=== PATIENT | female | born 1950 | race Caucasian/White ===

== ENCOUNTER 2022-11-12 15:22 | Emergency (ER) | payer MEDICARE, SELFPAY ==
--- NOTE | ~2022-11-12 | CT_ITS ---
EXAMINATION: CT CERVICAL SPINE WITHOUT CONTRAST; UNENHANCED CT OF THE HEAD. CLINICAL INFORMATION: Head and neck pain status post fall. COMPARISON: None TECHNIQUE: Routine unenhanced CT of the head with multiple coronal and sagittal reformatted images; routine unenhanced CT of the cervical spine with multiple coronal and sagittal reformatted images. This CT examination was performed using dose optimization techniques as appropriate, variously including the following: *Automated exposure control *Adjustment of mA and/or kV according to patient size (this includes techniques or standardized protocols for targeted exams where dose is matched to indication/reason for exam; i.e. extremities or head) *Use of iterative reconstruction technique DLP: 854 mGy-cm FINDINGS: The ventricles and sulci are normal in size and configuration. No intracranial hemorrhage, tumors or acute infarcts noted. The orbits and globes are normal in appearance. No mastoid or middle ear cavity effusions identified. Near-complete opacification of the visualized left maxillary sinus. A possible gas-fluid level is noted in the left maxillary sinus. The left orbital wall appears intact. No left orbital emphysema noted. The entirety of the left maxillary sinus is not included within the image [id number]. Within the left maxillofacial region included in the image [id number] and no soft tissue inflammatory changes are identified. CT cervical spine: No fractures or acute appearing subluxations identified. Diffuse multilevel intervertebral disc space narrowing and endplate osteophytosis is noted along with multilevel moderate-marked facet hypertrophic changes. No prevertebral fluid collections or soft tissue inflammatory changes identified. Incidental note is made of bilateral subcentimeter rounded low density foci within the thyroid which are overwhelmingly likely to represent benign entities and on the basis of this examination do not warrant additional imaging follow-up. CT/CT head/brain wo IV con IMPRESSION: CT head: *No acute intracranial abnormalities. *The left maxillary sinus is partially included in the image [id number] and demonstrates a gas-fluid level. Findings may indicate sinusitis. Close scrutiny of the visualized maxillofacial region demonstrates no acute soft tissue inflammatory changes or fractures. Fluid within the left maxillary sinus could also be present secondary to acute maxillofacial injury not included within the image [id number]. As clinically indicated consider further evaluation with dedicated maxillofacial CT. CT cervical spine: *No acute abnormalities. *Extensive multilevel chronic spondylosis.
--- NOTE | ~2022-11-12 | CT_ITS ---
EXAMINATION: CT CERVICAL SPINE WITHOUT CONTRAST; UNENHANCED CT OF THE HEAD. CLINICAL INFORMATION: Head and neck pain status post fall. COMPARISON: None TECHNIQUE: Routine unenhanced CT of the head with multiple coronal and sagittal reformatted images; routine unenhanced CT of the cervical spine with multiple coronal and sagittal reformatted images. This CT examination was performed using dose optimization techniques as appropriate, variously including the following: *Automated exposure control *Adjustment of mA and/or kV according to patient size (this includes techniques or standardized protocols for targeted exams where dose is matched to indication/reason for exam; i.e. extremities or head) *Use of iterative reconstruction technique DLP: 854 mGy-cm FINDINGS: The ventricles and sulci are normal in size and configuration. No intracranial hemorrhage, tumors or acute infarcts noted. The orbits and globes are normal in appearance. No mastoid or middle ear cavity effusions identified. Near-complete opacification of the visualized left maxillary sinus. A possible gas-fluid level is noted in the left maxillary sinus. The left orbital wall appears intact. No left orbital emphysema noted. The entirety of the left maxillary sinus is not included within the image [id number]. Within the left maxillofacial region included in the image [id number] and no soft tissue inflammatory changes are identified. CT cervical spine: No fractures or acute appearing subluxations identified. Diffuse multilevel intervertebral disc space narrowing and endplate osteophytosis is noted along with multilevel moderate-marked facet hypertrophic changes. No prevertebral fluid collections or soft tissue inflammatory changes identified. Incidental note is made of bilateral subcentimeter rounded low density foci within the thyroid which are overwhelmingly likely to represent benign entities and on the basis of this examination do not warrant additional imaging follow-up. CT/CT cervical spine wo IV con IMPRESSION: CT head: *No acute intracranial abnormalities. *The left maxillary sinus is partially included in the image [id number] and demonstrates a gas-fluid level. Findings may indicate sinusitis. Close scrutiny of the visualized maxillofacial region demonstrates no acute soft tissue inflammatory changes or fractures. Fluid within the left maxillary sinus could also be present secondary to acute maxillofacial injury not included within the image [id number]. As clinically indicated consider further evaluation with dedicated maxillofacial CT. CT cervical spine: *No acute abnormalities. *Extensive multilevel chronic spondylosis.
[2022-11-12 15:29] VITALS: BP 124/78; BP 145/96; PULSE 74; PULSE 84; RESP 18; TEMP 37.2; O2SAT 98; O2SAT 99; BMI 21.2
--- NOTE | 2022-11-12 15:31 | ED_ITS ---
HPI - Fall General Chief Complaint: Fall Stated Complaint: fall Time Seen by Provider: 11/12/22 15:25 Source: patient and EMS Mode of arrival: EMS History of Present Illness HPI Narrative: 72-year-old female with past medical history pancreatic CA s/p Whipple procedure, presenting to the ED complaining of scalp laceration s/p mechanical trip and fall off [employer] with + head strike. Reports was stepping down and fell backwards striking head on bureau. Denies taking anticoagulation. Denies LOC or symptoms prior to fall. reports associated headache and neck pain. Denies vision change/loss, nausea / vomiting, numbness, tingling, weakness. Tetanus UTP MD complaint: fall Related Data Previous Rx's Medication Instructions Recorded fluticasone propionate 50 2 spray intranasal DAILY #16 grams 11/12/22 mcg/actuation nasal spray,suspension (Flonase Allergy Relief) Allergies Allergy/AdvReac Type Severity Reaction Status Date / Time codeine Allergy Unknown Verified 11/12/22 15:34 egg Allergy Unknown Verified 11/12/22 15:34 NSAIDS (Non-Steroidal Allergy Unknown Verified 11/12/22 15:34 Anti-Inflamma Sulfa (Sulfonamide Allergy Unknown Verified 11/12/22 15:34 Antibiotics) Review of Systems Review of Systems: Constitutional: No Fever, No Chills, No Night Sweats, No Fatigue, No Malaise ENT/Mouth: No Ear Pain, No Nasal Congestion, No sore throat, No Rhinorrhea, No Swallowing Difficulty Eyes: No Eye Pain, No Swelling, No Redness, No Vision Changes Cardiovascular: No Chest Pain, No SOB, No Edema, No Palpitations Respiratory: No Cough, No Sputum, No Dyspnea Gastrointestinal: No Nausea, No Vomiting, No Diarrhea, No Constipation, No Abdominal pain Genitourinary: No Dysuria, No Urinary Frequency, No Hematuria, No Urinary Incontinence/retention Musculoskeletal: + joint pain, No Myalgias, No Joint Swelling Skin: + Skin Lesions, No rash Neuro: No Weakness, No Numbness, No Paresthesias, No Loss of Consciousness, No Dizziness, + Headache Yes all other systems are reviewed and are negative Constitutional: Constitutional: Reports as per HPI Neurologic: Denies Abnormal speech present [facility] Past Medical History Attestation statement: The following information was validated with the patient. Social History Social History Advance Directives: No Advance Directives Information Provided: Yes Physical Exam Vital Signs: Vital Signs: Last Vital Signs Temp 98.9 F 11/12/22 15:29 Pulse 74 11/12/22 15:29 Resp 18 11/12/22 15:29 BP 145/96 H 11/12/22 15:29 Pulse Ox 99 11/12/22 15:29 O2 Del Method 11/12/22 15:29 BMI result Body Mass Index 21.2 Const: General: cooperative, healthy appearing, comfortable and no acute distress Orientation/consciousness: patient oriented x3 Limitations: no limitations HEENT: Other: + 2 cm laceration noted to right occipital scalp. bleeding controlled Head: Yes normal to inspection and Yes atraumatic Ears: hearing grossly normal bilaterally General nose exam: Normal external nose present Face and sinus: Yes normal facial exam Throat: Yes posterior oropharynx normal, Yes tonsils normal and Yes uvula midline Eyes: General: appearance normal, both eyes and all related structures Pupils: Equal, round and reactive pupils present EOM: EOMs intact bilaterally Neck: Other: no midline cervical spinous tenderness Neck: Yes normal visual inspection and Yes no meningeal signs Resp: Effort & Inspection: normal respiratory effort and no respiratory distress Auscultation: clear to auscultation bilaterally Cardio: Rate: regular rate Heart sounds: S1 normal heart sound present and S2 normal heart sound present GI: Inspection: Yes normal to inspection Palpation (GI): Soft to palpation, nontender, no guarding and not rigid Back/Spine/Pelvis: Other: No midline thoracic/lumbar spinous tenderness/step-off or deformity Skin: Rashes: no rashes Neuro: General: patient oriented x3, gait normal, tone normal, moves all extremities, no meningeal signs, no focal motor deficits and CN's II-XI intact bilaterally Cranial nerves: Yes CN's II-XII intact bilaterally and Yes Equal, round and reactive pupils present Cognition (Neuro): normal cognition Speech: No Abnormal speech present Gait exam (Neuro): Normal gait present Motor exam (neuro): 5/5 motor strength present throughout Extrem: General: Yes normal to inspection Course Course Course Narrative: CT head/brain wo IV con/CT cervical spine wo IV con IMPRESSION: CT head: *No acute intracranial abnormalities. *The left maxillary sinus is partially included in the image [id number] and demonstrates a gas-fluid level. Findings may indicate sinusitis. Close scrutiny of the visualized maxillofacial region demonstrates no acute soft tissue inflammatory changes or fractures. Fluid within the left maxillary sinus could also be present secondary to acute maxillofacial injury not included within the image [id number]. As clinically indicated consider further evaluation with dedicated maxillofacial CT. ? CT cervical spine: *No acute abnormalities. *Extensive multilevel chronic spondylosis. ? > patient had no facial trauma, no further CT is indicated at this time. Patient reports she knows about left sided sinusitis which has been present times multiple years. Not interested in antibiotics at this time however will send Flonase Results discussed with patient including worrisome signs and symptoms and strict return precautions, and when to return to the emergency department. They verbalized understanding and feel safe for discharge at this time. Procedures Laceration Laceration 1: Site: scalp Side (If applicable): right Size (cm): 2 Description: linear Depth: simple, single layer Amount of anesthesia used (mL): 4 (prakash) Medical Decision Making Medical Decision Making MDM Narrative: 72-year-old female with past medical history pancreatic CA s/p Whipple procedure, presenting to the ED complaining of scalp laceration s/p mechanical trip and fall off [employer] with + head strike. on exam vital signs stable, NAD, nontoxic appearing, 2 cm laceration noted to left occipital scalp, no midline spinous tenderness throughout, no focal neuro deficits. Concern for ICH burst fractures. Low suspicion for ACS/PE plan: Head/ C-spine CT, repair wound Differential Diagnosis Differential Diagnoses: The differential diagnosis associated with the presentation includes as above Independent Interpretation I performed an independent interpretation of an: CT Scan Radiology Impression Discussion of test interpretation with radiology: I have reviewed the radiologist's reading. Prescription Management I considered prescription management with: Pain Medication Chronic Conditions Patient?s care impacted by: Cancer Discharge Plan Discharge Clinical Impression: Laceration of scalp Patient Disposition: Home, Self-Care Instructions: Laceration (ED) Additional Instructions: your CAT scans show left maxillary sinusitis. No appreciable fractures. Flonase is a nasal decongestion please use as needed/prescribed Your wound is repaired with prakash today Your wounds were repaired today in the emergency department. Keep dry and clean. You need to return to any emergency department, urgent care, or your PCPs office in 7-10 days for staple removal Apply bacitracin and or Neosporin daily If area begins look infected, is red, there is drainage, streaking, or you have fever please return to the emergency department Prescriptions: New fluticasone propionate [Flonase Allergy Relief] 50 mcg/actuation spray,suspension 2 spray intranasal DAILY Qty: 16 0RF Rx Instructions: administer into each nostril Referrals: Nury Lamar MD [Primary Care Provider] - 1 week Interventions: ED Discharge Assessment Last Done: 11/12/22 17:29 Discharge Date/Time: 11/12/22 17:29
== END 2022-11-12 17:29 | disposition home or self-care (01) ==
PROVIDERS: Emergency Provider Emergency Medicine Emergency Medical Services; PCP Internal Medicine
DX: S01.01XA Laceration without foreign body of scalp, initial encounter (principal); R51.9 Headache, unspecified; M54.2 Cervicalgia; W01.0XXA Fall on same level from slipping, tripping and stumbling without subsequent striking against object, initial encounter; Y93.9 Activity, unspecified; Y92.9 Unspecified place or not applicable; Y99.9 Unspecified external cause status
CPT/HCPCS: 12031; 70450; 72125; 99282; 99283

== ENCOUNTER 2022-11-20 09:38 | Emergency (ER) | payer MEDICARE, SELFPAY ==
[2022-11-20 10:00] VITALS: PULSE 69; RESP 16; TEMP 36.7; O2SAT 99; BMI 21.4
--- NOTE | 2022-11-20 10:03 | ED.GENADULT ---
HPI - General Adult General Chief complaint: General Medical Stated complaint: staple removal Time Seen by Provider: 11/20/22 10:03 Source: patient Mode of arrival: ambulatory Limitations: no limitations History of Present Illness HPI narrative: Patient is a 72 year old assigned female at with medical history of pancreatic cancer s/p whipple presenting to the emergency department today for staple removal. Patient states that 8 days ago she was seen and had 4 prakash placed in her scalp. Patient states that she has had no issues her prakash and she is here for removal. Patient denies any dizziness, lightheadedness, abdominal pain, nausea, vomiting, fever, chills, blurry vision, double vision, loss of vision, chest pain, difficulty breathing, shortness of breath, back pain, night sweats, pain with urination, increased urinary frequency, increased urinary urgency, blood in her urine or stool, syncope or a near syncopal episode, bowel incontinence, bladder incontinence, bowel retention, bladder retention, or any other complaints at this time. Location: head Severity: mild Severity scale (1-10): 1 Relieving factors: none Exacerbating factors: none Associated symptoms: denies other symptoms Treatments prior to arrival: none Related Data Previous Rx's Medication Instructions Recorded fluticasone propionate 50 2 spray intranasal DAILY #16 grams 11/12/22 mcg/actuation nasal spray,suspension (Flonase Allergy Relief) Allergies Allergy/AdvReac Type Severity Reaction Status Date / Time codeine Allergy Unknown Verified 11/12/22 15:34 egg Allergy Unknown Verified 11/12/22 15:34 NSAIDS (Non-Steroidal Allergy Unknown Verified 11/12/22 15:34 Anti-Inflamma Sulfa (Sulfonamide Allergy Unknown Verified 11/12/22 15:34 Antibiotics) Review of Systems Constitutional: Constitutional: Reports no additional constitutional complaints, Denies chills, Denies fever(s) and Denies night sweats Eyes: Eyes: Reports no additional eye complaints, Denies blurry vision, Denies change in vision, Denies diplopia, Denies eye discharge, Denies loss of vision and Denies eye pain ENT: Denies dizziness Cardiovascular: Cardiovascular: Reports no additional cardiovascular complaints, Denies chest pain, Denies lightheadedness, Denies Loss of Consciousness and Denies dyspnea Respiratory: Respiratory: Reports no additional respiratory complaints and Denies dyspnea Gastrointestinal: Gastrointestinal: Reports no additional gastrointestinal complaints, Denies abdominal pain, Denies melena, Denies hematochezia, Denies change in bowel habits and Denies change in stool character Genitourinary: Genitourinary: Denies hematuria, Denies urinary frequency, Denies dysuria, Denies urinary incontinence, Denies urinary hesitancy and Denies urinary urgency Musculoskeletal: Musculoskeletal: Reports no additional musculoskeletal complaints, Denies numbness and Denies tingling Neurologic: Denies dizziness, Denies loss of vision, Denies numbness and Denies tingling Psychiatric: Psychiatric: Reports no additional psychiatric complaints Endocrine: Endocrine: Reports no additional endocrine complaints Hematologic/Lymphatic: Hematologic/Lymphatic: Reports no additional hematologic/lymphatic complaints Allergic/Immunologic: Allergic/Immunologic: Reports no additional allergic/immunologic complaints [facility] Past Medical History Attestation statement: The following information was validated with the patient. Source: old records reviewed and nursing notes reviewed Social History Social History Advance Directives: No Advance Directives Information Provided: Yes Physical Exam ED Vital Signs: Vital Signs - 24 hr 11/20/22 10:00 Temperature 98.1 F Pulse Rate 69 Respiratory Rate 16 Pulse Oximetry 99 Oxygen Delivery Method Room Air BMI result Body Mass Index 21.4 Const General: cooperative, no acute distress, alert and awake Nutritional Appearance: well nourished Orientation/consciousness: patient oriented x3 Limitations: no limitations HENMT Other: [address] on left occipital scalp Ears: hearing grossly normal bilaterally and external ears normal General nose exam: Normal external nose present, no nasal discharge noted and no epistaxis Face and sinus: Yes normal facial exam, No abrasion and No laceration Mouth: Normal oral and palatal mucosa present, no drooling and no muffled voice Eyes General: appearance normal, both eyes and all related structures Periorbital: periorbital findings normal Eyelids: Yes eyelids normal Conjunctivae: conjunctivae normal Pupils: Equal, round and reactive pupils present EOM: EOMs intact bilaterally Neck Neck: Yes normal visual inspection, Yes full ROM and Yes no lymphadenopathy Chest Chest palpation & inspection: normal inspection of the chest Resp Effort & Inspection: normal respiratory effort and able to speak in complete sentences Auscultation: clear to auscultation bilaterally Cardio Rate: regular rate Rhythm: regular rhythm GI Inspection: Yes normal to inspection Neuro General: patient oriented x3 and moves all extremities Cranial nerves: Yes Equal, round and reactive pupils present Cognition (Neuro): normal cognition Motor exam (neuro): 5/5 motor strength present throughout Sensory Exam: Normal double simultaneous stimulation for sensation Coordination: [id number] test normal Extrem General: Yes normal to inspection, Yes full ROM and Yes capillary refill normal Psych Appearance: grossly normal Mental Status: mental status grossly normal Affect: normal affect Attitude: cooperative Thought process: Normal thought process present Thought content: Normal thought content present Insight: Good insight present (Psych) Procedures Procedure Narrative Procedure Narrative: 4 prakash removed from the left occipital scalp without incident. Medical Decision Making Medical Decision Making MDM Narrative: Patient is a 72 year old assigned female at with a history of pancreatic cancer s/p whipple procedure presenting to the emergency department today for staple removal. Patient's physical exam showed [address] in the left occipital scalp. I explained my physical exam findings to the patient. I answered all questions asked by the patient. Patient's prakash were removed, without incident. I stressed the importance of the patient taking her medication as prescribed. I stressed the importance of the patient following up with her primary care provider. I stressed the importance of the patient returning to the emergency department immediately if her symptoms were to worsen or if she were to develop any dizziness, shortness of breath, difficulty breathing, chest pain, blurry vision, loss of vision, nausea, vomiting, abdominal pain, fever, chills, back pain, or any other complaints. Patient verbalized agreement and understanding with this treatment plan and discharge. Differential Diagnosis Differential Diagnoses: The differential diagnosis associated with the presentation includes staple removal Discharge Plan Discharge Clinical Impression: Removal of prakash Patient Disposition: Home, Self-Care Additional Instructions: Follow up with your primary care provider. Return to the emergency department immediately if your symptoms worsen or if you develop any dizziness, shortness of breath, difficulty breathing, chest pain, blurry vision, loss of vision, nausea, vomiting, abdominal pain, fever, chills, back pain, or any other complaints. Prescriptions: No Action fluticasone propionate [Flonase Allergy Relief] 50 mcg/actuation spray,suspension 2 spray intranasal DAILY Qty: 16 0RF Rx Instructions: administer into each nostril Referrals: Nury Lamar MD [Primary Care Provider] - Print Language: Burmese
== END 2022-11-20 10:23 | disposition home or self-care (01) ==
PROVIDERS: Emergency Provider Emergency Medicine; PCP Internal Medicine
DX: Z48.02 Encounter for removal of sutures (principal)
CPT/HCPCS: 99282

== ENCOUNTER 2023-12-14 09:07 | Outpatient (AMB) | payer MEDICARE, SELFPAY ==
--- NOTE | 2023-12-14 09:09 | MHC.OFFWIV ---
Intake Vital Signs 12/14/23 09:18 Height 5 ft 2 in Weight 113 lb BMI 20.7 BP 110/60 Blood Pressure Location Lt brachial Position Sitting Pulse 82 Pulse Source Pulse Oximeter Temp 97 F Temp Source Temporal Artery Scan Intake Visit Reasons: EP Sinus conjuctivitis nose blowing blood clots Intake Note: pt is here today for sinus conjuctivitis nose blowing cloths started sunday Patient Tobacco Use Status: Never used Tobacco Allergies codeine Allergy (Verified 12/14/23 09:12) Unknown egg Allergy (Verified 12/14/23 09:12) Unknown NSAIDS (Non-Steroidal Anti-Inflamma Allergy (Verified 12/14/23 09:12) Unknown Sulfa (Sulfonamide Antibiotics) Allergy (Verified 12/14/23 09:12) Unknown Do you need a note to return to daycare/school/sports/work: No HPI HPI Comments History of Present Illness Details 73 y/o female presents to walk in clinic with c/o Sinus pressure, nose bleeding and dry itchy eyes. Pt currently on Chemo medication with variety of side effects. 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 She is also on Eliquis for Blood clot prevention. Denies vision or hearing problems. Denies F/C/V or nausea. [facility] Social History Patient Tobacco Use Status: Never used Tobacco Review of Systems Const All systems reviewed & are unremarkable except as noted in HPI and below Physical Exam Const General: no acute distress HEENT Head: Yes normocephalic Ears: external ears normal and TM's normal bilaterally General nose exam: Normal external nose present and Epistaxis present bilaterally Face and sinus: Yes sinuses nontender Mouth: moist mucous membranes Throat: Yes posterior oropharynx normal Eyes Conjunctivae: conjunctivae normal Pupils: Equal, round and reactive pupils present EOM: EOMs intact bilaterally Direct Ophthalmoscopy: normal light reflex Resp Effort & Inspection: normal respiratory effort Auscultation: clear to auscultation bilaterally Cardio Rate: regular rate Rhythm: regular rhythm Neuro Cranial nerves: Yes Equal, round and reactive pupils present Assessment & Plan Assessment & Plan (1) Dry eyes, bilateral: Code(s): H04.123 - Dry eye syndrome of bilateral lacrimal glands Plan: - Zaditor for dry eye relief. - Wash eyes with warm clean water (2) Epistaxis: Code(s): R04.0 - Epistaxis Plan: - Humidifier - Lower Thermostat bedtime - Ice on nose bridge plus tilt head back - Pinch nose during active bleeding. Medications: New ketotifen fumarate 0.025%(0.035%) (Zaditor) administer at least 8 hours apart 1 drp ophthalmic (eye) BID PRN 5 mL 0RF dry eyes H04.123 - Dry eye syndrome of bilateral lacrimal glands oxymetazoline 0.05% (Afrin (oxymetazoline)) 2 sprays intranasal Q12H 3 days PRN 15 mL 0RF nasal congestion and bleeding R04.0 - Epistaxis Coding Level of Care Code Est Pt Level 3 (06832) Diagnoses Dry eyes, bilateral H04.123 Epistaxis R04.0 Time Spent (min) 15
[2023-12-14 09:18] VITALS: BP 110/60; PULSE 82; TEMP 36.1; BMI 20.7
== END 2023-12-14 10:28 | disposition home or self-care (01) ==
PROVIDERS: PCP Internal Medicine; Visit Provider Nurse Practitioner Family
DX: H04.123 Dry eye syndrome of bilateral lacrimal glands (principal); R04.0 Epistaxis
CPT/HCPCS: 99213